=== PATIENT | female | born 1950 | race Caucasian/White ===

== ENCOUNTER 2021-08-05 20:07 | Emergency (ER) | payer OTHER, MEDICAID ==
[~2021-08-05] VITALS: Ht 160 cm; Wt 45.4 kg
[~2021-08-05 20:07] MED LIST: ASPI81CH43 PO; LEVO75TA6 PO; OMEP20CA74 PO
[2021-08-05 20:43] LABS: Basophils # (auto) 0 10 ^3/uL (0-0.2); Basophils % (auto) 0.5 % (0.0-2.0); Eosinophils # (auto) 0.1 10 ^3/uL (0-0.8); Eosinophils % (auto) 1.2 % (0.0-7.0); Hematocrit 38.8 % (36.0-46.0); Hemoglobin 12.6 g/dL (12.2-16.2); Lymphocytes # (auto) 0.9 10 ^3/uL (0.4-5.4); Lymphocytes % (auto) 14.1 % (10.0-50.0); Mean Corpuscular Hemoglobin 29.1 pg (28.0-32.0); Mean Corpuscular Hgb Conc. 32.6 g/dL (32.0-36.0); Mean Corpuscular Volume 89.3 fL (80.0-100.0); Monocytes # (auto) 0.3 10 ^3/uL (0-1.3); Monocytes % (auto) 5.5 % (0.0-12.0); Neutrophils # (auto) 4.8 10 ^3/uL (1.6-8.6); Neutrophils % (auto) 78.7 % (37.0-80.0); Red Blood Cells 4.34 10^6/uL (4.0-5.20); Red Cell Distribution Width 15.1 % (11.8-14.3); White Blood Cell 6.1 10^3/uL (4.4-10.8)
[2021-08-05 21:04] LABS: Albumin 3.4 g/dL (3.4-5.0); Calcium 8.5 mg/dL (8.5-10.1); Potassium 4.1 mmol/L (3.5-5.1)
[2021-08-05 21:08] LABS: BUN/Creatinine Ratio 24.4; Bilirubin, Total 0.3 mg/dL (0.2-1.0)
[2021-08-05] MEDS ORDERED: ONDANSETRON HCL 4 MG/2 ML VIAL IV ONE (21:45)
[2021-08-05] MEDS ORDERED: SODIUM CHLORIDE 0.9% 1,000 ML IV ONE (21:45)
[2021-08-05] MEDS ORDERED: fentaNYL CITRATE 100 MCG/2 ML VL IV ONE (21:45)
[2021-08-05 21:49] LABS: INR 1.16 (0.9-1.15)
[2021-08-06] MEDS ORDERED: IOHEXOL 300 MG/ML 100ML BOTTLE IJ ONE (00:41)
[2021-08-06] MEDS ORDERED: METOCLOPRAMIDE HCL 5MG/ml INJ 2ml VIAL IV ONE (01:45)
[2021-08-06] MEDS ORDERED: FAMOTIDINE (10MG/ML) 2ML VL IV ONE (01:45)
[2021-08-06 04:00] VITALS: BP 136/58
== END 2021-08-06 04:35 | disposition home or self-care (01) ==
LOC: ER 20:07 → EDUNIT# 20:07 → ER 08-06 04:35
DX: R10.13 Epigastric pain (principal); R11.2 Nausea with vomiting, unspecified; R53.1 Weakness; K21.9 Gastro-esophageal reflux disease without esophagitis; Z20.822 Contact with and (suspected) exposure to COVID-19; Z98.51 Tubal ligation status; Z79.899 Other long term (current) drug therapy
CPT/HCPCS: 36415; 74177; 76705; 80053; 83605; 83690; 83735; 85025; 85610; 87426; 93005; 96361; 96374; 96375; 99285; J2405; J2765; J3010; J3490; Q9967

== ENCOUNTER 2021-08-09 19:36 | Inpatient (IN) | payer OTHER, MEDICAID ==
[~2021-08-09] VITALS: Ht 157.5 cm; Wt 47.3 kg
[2021-08-09 20:56] LABS: Basophils # (auto) 0.1 10 ^3/uL (0-0.2); Basophils % (auto) 0.8 % (0.0-2.0); Eosinophils # (auto) 0.1 10 ^3/uL (0-0.8); Eosinophils % (auto) 0.7 % (0.0-7.0); Hematocrit 43.3 % (36.0-46.0); Hemoglobin 14.1 g/dL (12.2-16.2); Lymphocytes # (auto) 1.1 10 ^3/uL (0.4-5.4); Lymphocytes % (auto) 13.4 % (10.0-50.0); Mean Corpuscular Hemoglobin 29.1 pg (28.0-32.0); Mean Corpuscular Hgb Conc. 32.7 g/dL (32.0-36.0); Mean Corpuscular Volume 89.2 fL (80.0-100.0); Monocytes # (auto) 0.4 10 ^3/uL (0-1.3); Neutrophils # (auto) 6.9 10 ^3/uL (1.6-8.6); Neutrophils % (auto) 80.1 % (37.0-80.0); Nucleated Red Blood Cells % 0.1 %; Red Blood Cells 4.85 10^6/uL (4.0-5.20); Red Cell Distribution Width 14.9 % (11.8-14.3); White Blood Cell 8.6 10^3/uL (4.4-10.8)
[2021-08-09 21:02] LABS: INR 1.14 (0.9-1.15)
[2021-08-09 21:04] LABS: Albumin 3.9 g/dL (3.4-5.0); Anion Gap 8 (5-15); Blood Urea Nitrogen 18 mg/dL (7-18); Calcium 9.6 mg/dL (8.5-10.1); Carbon Dioxide 28 mmol/L (21-32); Chloride 99 mmol/L (98-107); Glucose 94 mg/dL (74-106); Lipase 190 U/L (73-393); Magnesium 2.8 mg/dL (1.6-2.6); Potassium 4.2 mmol/L (3.5-5.1); Sodium 135 mmol/L (136-145)
[2021-08-09 21:12] LABS: Alanine Aminotransferase 24 U/L (13-56); Alkaline Phosphatase 140 U/L (45-117); Aspartate Aminotransferase 19 U/L (15-37); BUN/Creatinine Ratio 22.2; Bilirubin, Total 0.5 mg/dL (0.2-1.0); GFR African American 89 mL/min; GFR Non-African American 74 mL/min; Total Protein 7.7 g/dL (6.4-8.2)
[2021-08-09 21:26] LABS: Urine Bacteria NONE SEEN /hpf (None Seen); Urine Blood Negative /uL (Negative); Urine Specific Gravity 1.006 (1.001-1.035); Urine WBC 3 /hpf (0 - 5)
[2021-08-09] MEDS ORDERED: SODIUM CHLORIDE 0.9% 1,000 ML IV ONE (21:45)
[2021-08-09] MEDS ORDERED: ONDANSETRON HCL 4 MG/2 ML VIAL IV ONE (21:45)
[2021-08-09] MEDS ORDERED: PANTOPRAZOLE 40 MG/10 ML VIAL INJ IV ONE (21:45)
[2021-08-09] MEDS ORDERED: IOHEXOL 300 MG/ML 100ML BOTTLE IJ ONE (22:00)
[2021-08-10] MEDS ORDERED: ONDANSETRON HCL 4 MG/2 ML VIAL IV ONE (01:15)
[2021-08-10] MEDS ORDERED: MORPHINE SULFATE 4 MG/ML SYR/VIAL IV ONE (01:15)
[2021-08-10] MEDS ORDERED: AZITHROMYCIN 500MG/ 250ML 250 ML IV ONE (03:45)
[2021-08-10] MEDS ORDERED: cefTRIAXone 1GM/50ML D5W 50 ML IV ONE (03:45)
[2021-08-10] MEDS ORDERED: SODIUM CHLORIDE 0.9% 1,000 ML IV ONE (04:00)
[2021-08-10] MEDS ORDERED: ACETAMINOPHEN 325 MG TAB PO PRN (04:00)
[2021-08-10] MEDS ORDERED: DOCUSATE SOD 100 MG CAP PO PRN (04:00)
[2021-08-10 04:19] LABS: Basophils # (auto) 0 10 ^3/uL (0-0.2); Basophils % (auto) 0.4 % (0.0-2.0); Eosinophils # (auto) 0 10 ^3/uL (0-0.8); Eosinophils % (auto) 0.4 % (0.0-7.0); Hematocrit 39.4 % (36.0-46.0); Hemoglobin 13.5 g/dL (12.2-16.2); Lymphocytes # (auto) 0.9 10 ^3/uL (0.4-5.4); Lymphocytes % (auto) 11.2 % (10.0-50.0); Mean Corpuscular Hemoglobin 30.4 pg (28.0-32.0); Mean Corpuscular Hgb Conc. 34.2 g/dL (32.0-36.0); Mean Corpuscular Volume 88.9 fL (80.0-100.0); Monocytes # (auto) 0.3 10 ^3/uL (0-1.3); Monocytes % (auto) 3.7 % (0.0-12.0); Neutrophils # (auto) 6.6 10 ^3/uL (1.6-8.6); Neutrophils % (auto) 84.3 % (37.0-80.0); Nucleated Red Blood Cells % 0.1 %; Red Blood Cells 4.43 10^6/uL (4.0-5.20); Red Cell Distribution Width 14.8 % (11.8-14.3); White Blood Cell 7.8 10^3/uL (4.4-10.8)
[2021-08-10 04:40] LABS: Potassium 4.3 mmol/L (3.5-5.1)
[2021-08-10 04:46] LABS: Cholesterol 137 mg/dL (< 200); HDL Cholesterol 59 mg/dL (40-59); LDL Cholesterol 67 mg/dL (< 100); Triglycerides 105 mg/dL (< 150)
[2021-08-10 04:48] LABS: Albumin 3.4 g/dL (3.4-5.0); BUN/Creatinine Ratio 16.3; Bilirubin, Total 0.6 mg/dL (0.2-1.0); Calcium 8.9 mg/dL (8.5-10.1); Total Protein 6.9 g/dL (6.4-8.2)
[2021-08-10] MEDS ORDERED: NITROGLYCERIN 0.4 MG SL TAB SL PRN (05:00)
[2021-08-10] MEDS: SODIUM CHLOR 0.9% PF (SALINE LOCK) 10ML VIAL/SYR IV SCH ×3 (06:02→22:20)
[2021-08-10] MEDS: LEVOTHYROXINE SODIUM 25 MCG TAB PO SCH (06:57)
[2021-08-10] MEDS: MORPHINE SULFATE 4 MG/ML SYR/VIAL IV PRN ×4 (06:58→20:34)
[2021-08-10] MEDS: cefTRIAXone 1GM/50ML D5W 50 ML IV SCH (09:16)
[2021-08-10] MEDS ORDERED: AZITHROMYCIN 500MG/ 250ML 250 ML IV SCH (10:00)
[2021-08-10] MEDS ORDERED: ASPirin 81 mg TAB PO SCH (10:00)
[2021-08-10] MEDS ORDERED: PANTOPRAZOLE 40 MG/10 ML VIAL INJ IV SCH (10:00)
[2021-08-10] MEDS: ZINC SULFATE 220mg CAP or TAB PO SCH (10:17)
[2021-08-10] MEDS: MULTIPLE VITAMIN TAB PO SCH (10:17)
[2021-08-10] MEDS: ASCORBIC ACID 500 MG TAB PO SCH ×2 (10:17→22:20)
[2021-08-10] MEDS: ONDANSETRON HCL 4 MG/2 ML VIAL IV PRN ×3 (10:26→20:23)
[2021-08-10] MEDS: SUCRALFATE 1 GM/10 ML ORAL SUSP PO SCH ×2 (15:55→22:20)
[2021-08-10 16:00] VITALS: BP 109/58
[2021-08-10 16:24] VITALS: BP 121/55
[2021-08-10 20:00] VITALS: BP 102/50
[2021-08-10 22:00] VITALS: BP 102/50
[2021-08-10] MEDS ORDERED: ATORVASTATIN 20 MG TAB PO SCH (22:00)
[2021-08-10] MEDS: PANTOPRAZOLE 40 MG TAB PO SCH (22:20)
[2021-08-11 05:00] VITALS: BP 116/59
[2021-08-11 05:23] LABS: Basophils # (auto) 0 10 ^3/uL (0-0.2); Basophils % (auto) 0.5 % (0.0-2.0); Eosinophils # (auto) 0.1 10 ^3/uL (0-0.8); Eosinophils % (auto) 1.9 % (0.0-7.0); Hemoglobin 12.9 g/dL (12.2-16.2); Lymphocytes # (auto) 1.3 10 ^3/uL (0.4-5.4); Lymphocytes % (auto) 16.4 % (10.0-50.0); Mean Corpuscular Hemoglobin 30.3 pg (28.0-32.0); Mean Corpuscular Volume 89.2 fL (80.0-100.0); Monocytes # (auto) 0.5 10 ^3/uL (0-1.3); Neutrophils # (auto) 5.8 10 ^3/uL (1.6-8.6); Neutrophils % (auto) 75.2 % (37.0-80.0); Red Blood Cells 4.26 10^6/uL (4.0-5.20); Red Cell Distribution Width 14.9 % (11.8-14.3); White Blood Cell 7.7 10^3/uL (4.4-10.8)
[2021-08-11] MEDS: SODIUM CHLOR 0.9% PF (SALINE LOCK) 10ML VIAL/SYR IV SCH ×3 (05:29→21:34)
[2021-08-11 05:46] LABS: Potassium 4.2 mmol/L (3.5-5.1)
[2021-08-11] MEDS: LEVOTHYROXINE SODIUM 25 MCG TAB PO SCH (05:53)
[2021-08-11] MEDS: SUCRALFATE 1 GM/10 ML ORAL SUSP PO SCH ×4 (05:53→21:35)
[2021-08-11 05:54] LABS: Albumin 3.1 g/dL (3.4-5.0); BUN/Creatinine Ratio 13.3; Bilirubin, Total 0.5 mg/dL (0.2-1.0); Calcium 9.3 mg/dL (8.5-10.1); Total Protein 6.4 g/dL (6.4-8.2)
[2021-08-11 09:00] VITALS: BP 125/68
[2021-08-11] MEDS: PANTOPRAZOLE 40 MG TAB PO SCH ×2 (09:42→21:35)
[2021-08-11] MEDS: cefTRIAXone 1GM/50ML D5W 50 ML IV SCH (09:42)
[2021-08-11] MEDS: ASCORBIC ACID 500 MG TAB PO SCH ×2 (09:42→21:35)
[2021-08-11] MEDS: ZINC SULFATE 220mg CAP or TAB PO SCH (09:42)
[2021-08-11] MEDS: MORPHINE SULFATE 4 MG/ML SYR/VIAL IV PRN (09:43)
[2021-08-11] MEDS: MULTIPLE VITAMIN TAB PO SCH (09:43)
[2021-08-11] MEDS: ONDANSETRON HCL 4 MG/2 ML VIAL IV PRN ×2 (09:44→19:59)
[2021-08-11] MEDS ORDERED: PANTOPRAZOLE 40 MG TAB PO SCH (10:00)
[2021-08-11] MEDS ORDERED: diphenhdrAMINE HCL 50 MG/1 ML VL ONE (11:12)
[2021-08-11] MEDS ORDERED: LIDOCAINE VISCOUS 2% 15ML UD ONE (11:12)
[2021-08-11] MEDS: MIDAZOLAM HCL 5 MG/ML-1ML VIAL ONE ×2 (14:15→14:18)
[2021-08-11] MEDS: fentaNYL CITRATE 100 MCG/2 ML VL ONE ×2 (14:15→14:18)
[2021-08-11 17:00] VITALS: BP 132/72
[2021-08-11] MEDS: HYDROcodone-ACET 5/325MG TAB PO PRN (19:59)
[2021-08-11 22:00] VITALS: BP 148/71
[2021-08-12] MEDS: MORPHINE SULFATE 4 MG/ML SYR/VIAL IV PRN ×2 (00:33→09:23)
[2021-08-12 05:00] VITALS: BP 15/66
[2021-08-12] MEDS: SODIUM CHLOR 0.9% PF (SALINE LOCK) 10ML VIAL/SYR IV SCH (06:09)
[2021-08-12] MEDS: SUCRALFATE 1 GM/10 ML ORAL SUSP PO SCH (06:11)
[2021-08-12] MEDS: LEVOTHYROXINE SODIUM 25 MCG TAB PO SCH (06:11)
[2021-08-12] MEDS: ONDANSETRON HCL 4 MG/2 ML VIAL IV PRN (06:12)
[2021-08-12] MEDS: HYDROcodone-ACET 5/325MG TAB PO PRN (06:12)
[2021-08-12 06:40] LABS: Basophils # (auto) 0 10 ^3/uL (0-0.2); Basophils % (auto) 0.7 % (0.0-2.0); Eosinophils # (auto) 0.2 10 ^3/uL (0-0.8); Hematocrit 40.6 % (36.0-46.0); Hemoglobin 13.7 g/dL (12.2-16.2); Lymphocytes # (auto) 1.2 10 ^3/uL (0.4-5.4); Lymphocytes % (auto) 17.2 % (10.0-50.0); Mean Corpuscular Hgb Conc. 33.7 g/dL (32.0-36.0); Mean Corpuscular Volume 89.1 fL (80.0-100.0); Monocytes # (auto) 0.4 10 ^3/uL (0-1.3); Monocytes % (auto) 6.4 % (0.0-12.0); Neutrophils % (auto) 72.7 % (37.0-80.0); Red Blood Cells 4.56 10^6/uL (4.0-5.20); Red Cell Distribution Width 15.1 % (11.8-14.3); White Blood Cell 6.9 10^3/uL (4.4-10.8)
[2021-08-12 06:47] LABS: BUN/Creatinine Ratio 15.7; Calcium 9.2 mg/dL (8.5-10.1); Potassium 4.1 mmol/L (3.5-5.1)
[2021-08-12 09:00] VITALS: BP 131/63
[2021-08-12] MEDS: PANTOPRAZOLE 40 MG TAB PO SCH (09:24)
[2021-08-12] MEDS: ASCORBIC ACID 500 MG TAB PO SCH (09:24)
[2021-08-12] MEDS: cefTRIAXone 1GM/50ML D5W 50 ML IV SCH (09:24)
[2021-08-12] MEDS: MULTIPLE VITAMIN TAB PO SCH (09:24)
[2021-08-12] MEDS: ZINC SULFATE 220mg CAP or TAB PO SCH (09:25)
[2021-08-12] MEDS ORDERED: PANT40T PO (10:40)
[2021-08-12] MEDS ORDERED: CIPR-173 PO (10:40)
[2021-08-12 13:00] VITALS: BP 99/50
== END 2021-08-12 12:10 | disposition home or self-care (01) | DRG 690 ==
LOC: EDUNIT# 19:36 → ER 19:36 → EDBD 19:36 → OVERFLOW 19:37 → CENTRAL 08-10 15:15
PROVIDERS: ADMIT Nurse Practitioner Family; ATTEND Internal Medicine Pulmonary Disease
PROC: 0DB68ZX Excision of Stomach, Via Natural or Artificial Opening Endoscopic, Diagnostic (ICD-10-PCS; principal; 2021-08-11 14:10)
DX: N39.0 Urinary tract infection, site not specified (principal); K29.70 Gastritis, unspecified, without bleeding; E03.9 Hypothyroidism, unspecified; K21.9 Gastro-esophageal reflux disease without esophagitis; Z20.822 Contact with and (suspected) exposure to COVID-19; Z85.038 Personal history of other malignant neoplasm of large intestine; Z86.16 Personal history of COVID-19; Z87.01 Personal history of pneumonia (recurrent); Z98.51 Tubal ligation status; Z83.3 Family history of diabetes mellitus; Z82.49 Family history of ischemic heart disease and other diseases of the circulatory system
CPT/HCPCS: 36415; 43239; 71045; 74177; 80048; 80053; 80061; 81001; 83605; 83690; 83735; 83880; 84443; 84484; 85025; 85379; 85610; 87086; 87426; 93005; 93970; 96365; 96366; 96367; 96368; 96375; 96376; C9113; G0378; J0696; J2250; J2405